=== PATIENT | male | born 1985 | race Caucasian/White ===

== ENCOUNTER → 2018-02-07 | Day surgery (SDC) | payer SELFPAY ==
[~2018-02-07] VITALS: Ht 177.8 cm; Wt 85.3 kg
[~2018-02-07] MED LIST: GOOD SENSE IBU200 MG PO; NORCO 325 MG-51 TAB PO; PERCOCET 325 MG1 TAB PO
--- NOTE | 2018-02-07 17:42 | Operative Report ---
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 We will also be liposuctioning the lateral flanks today. She has significant skin excess and tight bands and these were pointed out they will not likely be completely removed but they should be improved. We talked about the risks including but not limited to infection bleeding pain numbness hematoma seroma to injury to deeper and surrounding structures which could be significant. Custom infection. Patient agreed signed informed consent after she was marked in the standing position clearly showing the areas of would be treated and those that would not. She was brought to the operating room placed supine on the table. Venodyne boots are placed and then anesthesia was established intravenous antibiotics given. The abdomen and flanks were prepped and draped in usual sterile fashion. Multiple incisions were made to allow tumescent fluid which was carried out with 5 L of standard solution. After a brief waiting period 4200 mL of aspirate was removed. Incisions were closed in 2 layers. Abdominal binder was placed. Of note she was examined after the induction of anesthesia and no abdominal hernias were identified.
--- NOTE | 2018-02-07 17:47 | Operative Report ---
Operative/Inv Procedure Report Surgery Date: 02/07/18 Name of Procedure: Bilateral treatment gynecomastia via the direct open and liposuction approach Pre-Operative Diagnosis: cosmetic gynecomastia Post-Operative Diagnosis: Same Estimated Blood Loss: less than 50ml Surgeon/Nursing Professor: Ajith Cherry MD Anesthesia: general endotracheal tube Operative/Procedure Note Note: Patient was counseled regards to the procedure the alternatives risks and expected outcomes as relates to his request for surgical intervention to treat cosmetic asymptomatic gynecomastia. We talked about the treatment options including liposuction of the upper anterior axillary fold fullness as well as the fullness in the retroareolar position. We talked about direct open approach leaving the scar around the bottom half of the areola is definite invisible might be symptomatic or unsightly. We talked about recurrence failure to achieve desired results seroma hematoma infection pain numbness and injury to surrounding structures. Once agreed and signed informed consent after being marked in the standing position shown the areas of would be treated and those that would not. Is brought to the operating placed supine on the table. Venodyne boots are placed and the chest was prepped and draped in usual sterile fashion after the induction of general anesthesia. Chest had been prepped and therefore liposuction was begun through an axillary crease incision with tumescent instilled 500 mL each side in usual solution. At the poor liposuction was carried out of the area tapering it nicely and radial and reassess in the palpation. A direct infra-areolar incision was deepened and a action of breast tissue was removed leaving the areola with approximately three quarters of a centimeter retroareolar tissue. The wound was inspected under direct vision found to be hemostatic and therefore was closed in 3 layers. Approximately 800 mL of aspirate was removed
== END ==
LOC: STS 01:45
DX: Z41.1 Encounter for cosmetic surgery (principal); N62 Hypertrophy of breast
CPT/HCPCS: J0171; J0690; J1100; J2001; J2250; J2405